=== PATIENT | male | born 1955 | race Caucasian/White ===

== ENCOUNTER 2017-09-04 22:25 | Inpatient (IN) | payer BC, OTHER ==
[~2017-09-04] VITALS: Ht 185.4 cm; Wt 98.9 kg
[2017-09-04 23:00] VITALS: BP 104/65
[2017-09-04] MEDS ORDERED: DILTIAZEM 125 MG/25 ML IV (CARDIZEM) IV ONE (23:07)
[2017-09-04] MEDS ORDERED: D5W 100 ML IVPB 100 ML IV ONE (23:07)
[2017-09-05] VITALS (16 sets, daily range): BP systolic 88–110; BP diastolic 58–77
[2017-09-05] MEDS ORDERED: ACETAMINOPHEN 325 MG TABLET/CAPLET (TYLENOL) PO PRN
[2017-09-05] MEDS: DILTIAZEM IV FOR DRIP 125 MG in D5W 100 ML IVPB 100 ML IV SCH ×2 (01:15→07:49)
[2017-09-05 03:45] LABS: BASOPHILS % (AUTO) 0 % (0-10); EOSINOPHILS # (AUTO) 0.1 10^3/uL (0.0-0.3); EOSINOPHILS % (AUTO) 1 % (0-10); HEMATOCRIT 39 % (40-54); HEMOGLOBIN 13.4 G/DL (13.3-17.7); LYMPHOCYTES # (AUTO) 1.1 X 10^3 (1.0-4.0); LYMPHOCYTES % (AUTO) 14 % (12-44); MEAN CORPUSCULAR HEMOGLOBIN 31 PG (25-34); MEAN CORPUSCULAR HGB CONC 34 G/DL (32-36); MEAN CORPUSCULAR VOLUME 91 FL (80-99); MEAN PLATELET VOLUME 11.2 FL (7.4-10.4); MONOCYTES # (AUTO) 0.9 X 10^3 (0.0-1.0); MONOCYTES % (AUTO) 11 % (0-12); NEUTROPHILS # (AUTO) 5.7 X 10^3 (1.8-7.8); NEUTROPHILS % (AUTO) 73 % (42-75); PLATELET COUNT 210 10^3/uL (130-400); RED BLOOD COUNT 4.27 10^6/uL (4.35-5.85); RED CELL DISTRIBUTION WIDTH 12.3 % (10.0-14.5); WHITE BLOOD COUNT 7.8 10^3/uL (4.3-11.0)
[2017-09-05 04:06] LABS: BUN/CREATININE RATIO 16; CALCIUM 8.6 MG/DL (8.5-10.1); CARBON DIOXIDE 21 MMOL/L (21-32); CHLORIDE 108 MMOL/L (98-107); CREATININE SERUM 1.18 MG/DL (0.60-1.30); GFR ESTIMATED > 60; GLUCOSE 126 MG/DL (70-105); MAGNESIUM 1.9 MG/DL (1.8-2.4); POTASSIUM 3.9 MMOL/L (3.6-5.0); SODIUM 140 MMOL/L (135-145)
[2017-09-05] MEDS ORDERED: POTASSIUM CL 10MEQ/50ML IVPB 50 ML IV SCH (06:00)
[2017-09-05] MEDS ORDERED: MAGNESIUM 1 GM/100 ML IVPB 100 ML IV SCH (06:00)
[2017-09-05] MEDS ORDERED: KCL 20 MEQ TAB (K-DUR) PO SCH (06:00)
[2017-09-05] MEDS ORDERED: INFLUENZA TRIvalent 2017-2018 0.5 ML/45 MCG SYR IM ONE (08:30)
[2017-09-05] MEDS ORDERED: AMIODARONE IV SOLUTION 200 ML IV ONE (09:30)
[2017-09-05] MEDS ORDERED: APIXABAN 5 MG (ELIQUIS) TABLET PO SCH (09:30)
[2017-09-05] MEDS: AMIODARONE IV SOLUTION 200 ML IV SCH ×2 (10:19→14:15)
--- NOTE | 2017-09-05 11:13 | Consultation-Cardiology ---
HPI-Cardiology Cardiology Consultation: Date of Consultation 09/05/17 Date of Admission Attending Physician Jarvis Akbar MD Admitting Physician Consulting Physician Estefanía ROLDAN MD HPI: Time Seen by Provider: 10:30 Chief Complaint: atrial fibrillation this is a 62-year-old gentleman who does not have any past medical or cardiac history. He is a patient of Dr. Morrow in [employer]. According to the patient he has been having flulike symptoms in the last one to 2 weeks. And has not been feeling well. He was found to have heart rate of 160 bpm at home on her home blood pressure monitor with low blood pressure and therefore presented to [facility]. According to the patient he did not have any shortness of breath, palpitation, syncope or near syncope. He was found to be in atrial flutter with rapid ventricular rate. Initial heart rate was 160 BPM. He was given Cardizem bolus with no significant response. He was transferred to our hospital for further management. He was given one dose of Eliquis in [facility] last night. We started him on IV Cardizem infusion overnight and amiodarone infusion in the morning. Review of Systems-Cardiology Review of Systems Constitutional: No As described under HPI, No no symptoms reported, No chills, No fever, No lightheadedness, No malaise, No tiredness, No weight loss, No weight gain, No other Eyes: No As described under HPI, No no symptoms reported, No blindness, No blurred vision, No contact lenses, No drainage, No decreased acuity, No foreign body sensation, No glasses, No inflammation, No pain, No photophobia, No previous injury, No shadows, No tunnel vision, No other, No vision change Ears/Nose/Throat: No As described under HPI, No no symptoms reported, No chronic hearing loss, No epistaxis, No ear discharge, No ear pain, No loose teeth, No mouth pain, No mouth swelling, No nasal drainage, No nose pain, No recent hearing loss, No throat pain, No throat swelling, No ulcerations, No other Respiratory: No no symptoms reported, No As described under HPI, No cough, No orthopnea, No shortness of breath, No SOB with excertion, No SOB at rest, No stridor, No wheezing, No other Cardiovascular: No no symptoms reported, No As described under HPI, No chest pain, No edema, No irregular heart rate, No lightheadedness, No palpitations, No syncope, No other Gastrointestinal: No no symptoms reported, No As described under HPI, No abdomen distended, No abdominal pain, No blood streaked bowels, No constipation , No diarrhea, No difficulty swallowing, No nausea, No poor appetite, No poor fluid intake, No rectal bleeding, No vomiting, No other, No nausea/vomiting/ diarrhea, No stool coloration changes Genitourinary: No no symptoms reported, No As described under HPI, No burning, No dysuria, No discharge, No frequency, No flank pain, No hematuria, No incontinence, No pain, No urgency, No other, No urine frequency changes, No urine coloration changes Musculoskeletal: No no symptoms reported, No As describe under HPI, No back pain, No gout, No joint pain, No joint swelling, No muscle pain, No muscle stiffness, No neck pain, No other Skin: No no symptoms reported, No As described under HPI, No change in color, No change in hair/nails, No dryness, No lesions, No lumps, No rash, No other, No skin related problems, No ulcerations, No rash on exposed areas, No ulcerations on exposed areas Psychiatric/Neurological: No no symptoms reported, No As described under HPI, No anxiety, No depression, No emotional problems, No headache, No numbness, No pre-existing deficit, No seizure, No tingling, No tremors, No weakness, No other , No focal weakness, No syncope Hematologic: No no symptoms reported, No As described under HPI, No anemia, No blood clots, No easy bleeding, No easy bruising, No swollen glands, No other, No bleeding abnormalities XCP-Wrjivj-Ejxkzv Hx Patient Social History Alcohol Use: Denies Use Recreational Drug Use: No Smoking Status: Never a Smoker Recent Foreign Travel: No Recent Infectious Disease Expo: No Physical Abuse Screen: No Sexual Abuse: No Past Medical History PMH As described under Assessment. Allergies and Home Medications Allergies Coded Allergies: No Known Drug Allergies (Unverified , 09/04/17) Physical Exam-Cardiology Physical Exam Vital Signs/I&O Vital Sign - Last 12Hours 09/04/17 09/05/17 09/05/17 09/05/17 23:48 00:00 01:00 01:00 Pulse 162 84 97 85 Resp 26 25 B/P (MAP) 97/68 (78) 104/68 (80) Pulse Ox 93 96 O2 Delivery Room Air Room Air 09/05/17 09/05/17 09/05/17 09/05/17 01:22 02:00 03:00 04:00 Pulse 86 85 Resp 28 18 B/P (MAP) 89/58 (68) 100/73 (82) Pulse Ox 97 93 93 95 O2 Delivery Room Air Room Air Room Air Room Air 09/05/17 09/05/17 09/05/17 09/05/17 04:00 04:00 05:00 06:00 Temp 98.9 Pulse 112 90 86 Resp 12 11 19 B/P (MAP) 102/65 (77) 103/70 (81) 88/60 (69) Pulse Ox 95 92 94 O2 Delivery Room Air Room Air Room Air 09/05/17 09/05/17 09/05/17 09/05/17 07:00 07:00 07:49 07:49 Temp 97.6 Pulse 95 96 114 Resp 26 B/P (MAP) 110/75 (87) 110/75 Pulse Ox 96 O2 Delivery Room Air Room Air 09/05/17 09/05/17 09/05/17 09/05/17 08:00 08:15 09:00 10:00 Pulse 126 86 78 Resp 29 28 15 B/P (MAP) 104/72 (83) 106/77 (87) 108/74 (85) Pulse Ox 96 97 96 99 O2 Delivery Room Air Room Air Room Air Room Air Capillary Refill : Constitutional: No appears stated age, No AAO x 3, No apparent distress, No PERRL, No well-developed, No well-nourished, No other HEENT: No PERRL, No normal ENT inspection, No TMs normal, No pharynx normal, No scleral icterus (R), No scleral icterus (L), No pale conjunctivae (R), No pale conjunctivae (L), No photophobia, No TM abnormal (R), No TM abnormal (L), No pharyngeal erythema, No tonsillar exudate, No other, No discharge, No EOMI, No hearing is well preserved, No hard of hearing, No oral hygience is good, No ulceration, No xanthelasmas are seen Neck: No non-tender, No full range of motion, No supple, No normal inspection, No carotid bruit, No limited range of motion, No lymphadenopathy (R), No lymphadenopathy (L), No tender lateral, No tender midline, No thyromegaly, No other, No carotid pulses are 2 + bilaterally, No with good upstrokes Respiratory: No accessory muscle use, No respiratory distress, No chest tender , No chest expansion is symmetric, No chest is bilaterally symmetric, No lungs clear to percussion, No lungs clear to auscultation, No crackles, No rhonchi, No rales, No stridor, No wheezing, No pleural rub, No other Cardiovascular: irregularly irregular, tachycardia, S1 and S2 Gastrointestinal: No tender, No soft, No round, No distended, No pulsatile mass , No organomegaly, No guarding, No rebound, No tenderness, No hernia, No mass, No audible bowel sounds, No abnormal bowel sounds, No abdominal bruits, No spleenomegaly, No other Rectal: deferred Extremities: No normal range of motion, No non-tender, No normal inspection, No pedal edema, No calf tenderness, No normal capillary refill, No pelvis stable , No calf tenderness, No inflammation, No pedal edema, No slow capillary refill , No swelling, No other, No abrasion, No clubbing, No cyanosis, No ecchymosis, No laceration, No no lower extremity edema bilateral, No significant edema, No tenderness, No wound Neurologic/Psychiatric: No medical referral coordinator II-XII nml as tested, No no motor/sensory deficits, No alert, No normal mood/affect, No oriented x 3, No abnormal cerebellar tests, No abnormal medical referral coordinator II-XII, No abnormal gait, No aphasia, No EOM palsy, No facial droop, No motor weakness, No sensory deficit, No depressed affect, No disoriented x 3, No other, No grossly intact, No power is 5/5 both on sides Skin: No normal color, No warm/dry, No cyanosis, No cool, No diaphoresis, No damp, No ecchymosis, No jaundice, No mottled, No pallor, No rash, No tattoos/ piercings, No ulcerations, No rash on exposed areas, No ulcerations on exposed areas, No other Data Review Labs Laboratory Tests 09/05/17 03:14: White Blood Count 7.8, Red Blood Count 4.27L, Hemoglobin 13.4, Hematocrit 39L, Mean Corpuscular Volume 91, Mean Corpuscular Hemoglobin 31, Mean Corpuscular Hemoglobin Concent 34, Red Cell Distribution Width 12.3, Platelet Count 210, Mean Platelet Volume 11.2H, Neutrophils (%) (Auto) 73, Lymphocytes (%) (Auto) 14 , Monocytes (%) (Auto) 11, Eosinophils (%) (Auto) 1, Basophils (%) (Auto) 0, Neutrophils # (Auto) 5.7, Lymphocytes # (Auto) 1.1, Monocytes # (Auto) 0.9, Eosinophils # (Auto) 0.1, Basophils # (Auto) 0.0, Sodium Level 140, Potassium Level 3.9, Chloride Level 108H, Carbon Dioxide Level 21, Anion Gap 11, Blood Urea Nitrogen 19H, Creatinine 1.18, Estimat Glomerular Filtration Rate > 60, BUN /Creatinine Ratio 16, Glucose Level 126H, Calcium Level 8.6, Phosphorus Level 2.6, Magnesium Level 1.9, Thyroid Stimulating Hormone (TSH) 2.37 ECG Impression ECG Comment atrial flutter with rapid ventricular rate A/P-Cardiology Assessment/Admission Diagnosis atrial flutter with rapid ventricular rate Plan I discussed at length the pathophysiology of atrial flutter, stroke prevention, rate versus rhythm control and further diagnostic and therapeutic modalities. The patient's CHADSVASC 0 therefore full aspirin is reasonable. However since we are going to pursue a rhythm control strategy therefore I have recommended Eliquis for at least a month. He is already on Cardizem infusion and amiodarone infusion. Transesophageal echocardiogram and direct external electrical cardioversion planned for today. If successful conversion he may be able to go home later today with follow-up in our electrophysiology office in the next one week. Transthoracic echocardiogram as well. Thank you for your consultation. Please call me if you have any questions. Estela Roldan MD, FACP, FACC, FSCAI, FHRS, CCDS Interventional Cardiology Cardiac Electrophysiology Vascular Medicine and Endovascular Interventions Clinical Quality Measures DVT/VTE Risk/Contraindication: Risk Factor Score Per Nursin RFS Level Per Nursing on Admit: 2=Moderate Estefanía ROLDAN MD Sep 05, 2017 11:13 am
[2017-09-05] MEDS ORDERED: NS IV 500 ML 500 ML IV SCH (11:30)
[2017-09-05] MEDS ORDERED: LIDOCAINE 2% VISCOUS 15 ML UDC PO ONE (11:30)
--- NOTE | 2017-09-05 11:55 | Short Stay Summary-Hospitalist ---
HPI History of Present Illness: HPI/Chief Complaint the patient is a 62-year-old white male who first noted 2 weeks ago coming down with body aches and pains and fever with dry cough. 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 He denied any problems with chest discomfort or palpitations heart racing sensation syncope or presyncope. 2 days prior to admission his noted that his heart rate was elevated at in the 150-160 beat per minute range. Patient was unaware. He saw their primary care physician Dr. Kwan I believe on and he was in the process of scheduling for further evaluation as he was also noted to have an elevated heart rate. Thursday his noted that his heart rate was still in the 150-160 beat per minute range on her home blood pressure monitor with reportedly normal blood pressures. At her insistence he presented to the emergency room where he was noted to be in atrial flutter with a rapid ventricular response in the 160 beat per minute range. He received IV Cartia some and metoprolol without any rate reduction and he was transferred to our facility for cardiovascular consultation further management of his atrial flutter with rapid ventricular response. He reports that prior to 2 weeks ago he been feeling well with no past history of known cardiac arrhythmias or cardiac disease. He's taking no medication. There is no history of thyroid or other autoimmune diseases that he is aware of. See below review of systems. Date Seen 09/05/17 Time Seen by Provider: 07:30 Attending Physician Michelle Akbar MD PCP Referring Physician Date of Admission Sep 04, 2017 at 23:00 Home Medications & Allergies Home Medications Reviewed patient Home Medication Reconciliation Form Allergies Allergies Coded Allergies No Known Drug Allergies (Unverified09/04/17) Past Uromajk-Fvqkfs-Uexlna Hx Patient Social History Alcohol Use: Denies Use Recreational Drug Use: No Smoking Status: Never a Smoker Physical Abuse Screen: No Sexual Abuse: No Recent Foreign Travel: No Contact w/other who traveled: No Recent Hopitalizations: No Recent Infectious Disease Expo: No Seasonal Allergies Seasonal Allergies: No Surgeries Yes (SPINAL FISION, TONSILS A KID) Respiratory No Cardiovascular No Neurological No Genitourinary No Gastrointestinal No Musculoskeletal No Endocrine History of Endocrine Disorders: No HEENT History of HEENT Disorders: No Cancer No Psychosocial History of Psychiatric Problem: No Integumentary History of Skin or Integumenta: No Blood Transfusions History of Blood Disorders: No Adverse Reaction to a Blood Tr: No Review of Systems Constitutional: see HPI, No chills, No diaphoresis, No dizziness, fever (2 weeks ago for several days but then resolved), No malaise, weakness, No weight gain, No weight loss, No other EENTM: nose congestion (cough for about a week but currently minimal no sputum production reported.) Respiratory: cough (cough for about a week but currently minimal no sputum production reported.), No dyspnea on exertion, No hemoptysis, No orthopnea, No phlegm, No short of breath, No stridor, No wheezing, No other Cardiovascular: no symptoms reported, see HPI, No chest pain, No edema, No Hx of Intervention, No palpitations, No syncope, No vascular heart diseas, No other Physical Exam Physical Exam Vital Signs Vital Sign - Last 12Hours 09/04/17 23:00 Temp 98.5 Pulse 161 Resp 25 B/P (MAP) 104/65 (78) Pulse Ox 97 O2 Delivery Room Air Capillary Refill : General Appearance: No Apparent Distress, WD/WN Neck: Full Range of Motion, Normal Inspection, Non Tender, Supple, Carotid Bruit Respiratory: Chest Non Tender, Lungs Clear, Normal Breath Sounds, No Accessory Muscle Use, No Respiratory Distress Cardiovascular: No Edema, No Gallop, No JVD, No Murmur, Normal Peripheral Pulses, Irregularly Irregular, Tachycardia Gastrointestinal: Normal Bowel Sounds, No Organomegaly, No Pulsatile Mass, Non Tender, Soft Extremity: Normal Capillary Refill, Normal Inspection, Normal Range of Motion, Non Tender, No Calf Tenderness, No Pedal Edema Neurologic/Psychiatric: Alert, Oriented x3, No Motor/Sensory Deficits, Normal Mood/Affect Results Results/Procedures Lab Laboratory Tests 09/05/17 03:14 Short Stay Diagnosis Discharge Diagnosis-Short Stay Admission Diagnosis 1. Atrial flutter with rapid ventricular response. Final Discharge Diagnosis same as above Conclusion Plan Mr. Chang was admitted to the intensive care unit for IV Cartia some was continued and amiodarone IV was initiated. He remained in atrial flutter with a more controlled ventricular response in the 90-110 be per minute range down from the 160 range. He remained asymptomatic voicing no complaints. Blood studies including TSH were unremarkable. Verbal report per Dr. Roldan echocardiogram revealed no structural heart disease with preserved systolic function. He'll be undergoing likely DEBBI with cardioversion to follow this afternoon with plans on discharging after. Full dose aspirin in one month of L Mahan will be initiated. Refer to discharge summary for other rate control medications per Dr. Roldan. Copy Copies To 1: MICHELINE KWAN MD Clinical Quality Measures DVT/VTE Risk/Contraindication: Risk Factor Score Per Nursin RFS Level Per Nursing on Admit: 2=Moderate MICHELLE AKBAR MD Sep 05, 2017 11:55
[2017-09-05] MEDS ORDERED: MIDAZOLAM 2 MG/2 ML (VERSED) VIAL ONE (11:59)
[2017-09-05] MEDS ORDERED: proPOfol 200 MG/20 ML (DIPRIVAN) VIAL IV ONE ×2 (12:00→12:15)
--- NOTE | 2017-09-05 12:33 | Cardioversion ---
Cardioversion PROCEDURE PHYSICIAN: Estela Roldan MD DATE OF PROCEDURE: 09/05/17 DIRECT EXTERNAL ELECTRICAL CARDIOVERSION: Indications: Atrial flutter with rapid ventricular rate Preoperative diagnoses: Atrial flutter with rapid ventricular rate Postoperative diagnosis: Sinus rhythm, Successful Electrical Cardioversion History: this is a 62-year-old gentleman who does not have any significant past medical or cardiac history. He presents with atrial flutter with rapid ventricular rate. He was treated with Cardizem infusion overnight and IV amiodarone infusion since morning however he remains in atrial flutter. Cardioversion after transesophageal echocardiogram is recommended. Anesthesia: By Anesthesia services Complications: None Specimen: None Contrast: 0 Flouroscopy: none Procedure Details: Cardioversion was performed in the ICU after informed consent was taken, all the risks and complications were explained including the risk of stroke. Electrical cardioversion was carried out with anesthesia support with propofol. 120 joules of synchronized shock was delivered through external patches which promptly restored sinus rhythm. The patient tolerated the procedure well. transesophageal echocardiogram did not show any left atrium or left atrial appendage thrombus. Conclusions: 1.Successful Cardioversion. 2.Continue oral anticoagulation and rate controlling agent. 3.Follow up in office next week. Estela Roldan MD, RS, CCDS Cardiac Electrophysiology Estefanía ROLDAN MD Sep 05, 2017 12:33 pm
[2017-09-05] MEDS ORDERED: APIX5TAB PO (12:35)
[2017-09-05] MEDS ORDERED: DILT180C67 PO (12:35)
--- NOTE | 2017-09-05 12:35 | Anesthesia-Procedure Note ---
Procedure Start/Stop Time Date of Procedure: Sep 05, 2017 Start Time: 12:00 Referring Physician: Jamar Stop Time: 12:25 Procedures/Interventions Procedures Called to ICU for DEBBI/Cardioversion sedation. Spoke with patient. Brief history obtained. Procedure completed. 2mg versed and 250 mg propofol given for sedation throughout procedure. VSS. Patient tolerated procedure well. Spontaneous respirations maintained. Care to GYRO COMPASS TESTER. JOSEPH ARNETT CRNA Sep 05, 2017 12:35
--- NOTE | 2017-09-05 12:36 | Discharge Inst-Cardiology ---
Discharge Inst-Cardiac Patient Instructions Patient Instructions: patient will be discharged on Cardizem CD 180 mg daily. He will also continue on Eliquis 5 mg twice a day. Follow-up with Dr. Roldan next week. Goal: sinus rhythm. [facility] if symptomatic atrial flutter. Activity & Diet Discharge Diet: No Restrictions Drink 6-8 Glasses/Fluids/Day: Yes Activity as Tolerated: Yes Estefanía ROLDAN MD Sep 05, 2017 12:36 pm
[2017-09-05] MEDS ORDERED: MIDAZOLAM 2 MG/2 ML (VERSED) VIAL IVP NR (12:37)
[2017-09-05] MEDS ORDERED: proPOfol 200 MG/20 ML (DIPRIVAN) VIAL IV NR (12:38)
[2017-09-05] MEDS ORDERED: DILTIAZEM 180 MG (CARDIZEM CD) CAP PO NR (12:48)
== END 2017-09-05 16:30 | disposition home or self-care (01) | DRG 310 ==
LOC: ICU 23:00
PROVIDERS: ADMIT Internal Medicine; ATTEND Internal Medicine
PROC: 5A2204Z Restoration of Cardiac Rhythm, Single (ICD-10-PCS; principal; 2017-09-05)
DX: I48.92 Unspecified atrial flutter (principal)
CPT/HCPCS: 36415; 80048; 83735; 84100; 84443; 85025; 93306; 93320; 93325

== ENCOUNTER 2017-12-06 10:45 | Outpatient (RCR) | payer BC ==
[~2017-12-06 10:45] MED LIST: APIX5TAB PO; DILT180C67 PO
== END 2018-02-10 | disposition home or self-care (01) ==
LOC: CARD 10:45
PROVIDERS: ATTEND Internal Medicine Interventional Cardiology
DX: I48.92 Unspecified atrial flutter (principal); I10 Essential (primary) hypertension
CPT/HCPCS: 93270

== ENCOUNTER 2019-06-13 06:54 | Day surgery (SDC) | payer BC ==
[~2019-06-13] VITALS: Ht 185 cm; Wt 215.0 kg
[2019-06-13] VITALS (22 sets, daily range): BP systolic 96–144; BP diastolic 48–94
[2019-06-13] MEDS ORDERED: NS IV 1000 ML 1,000 ML IV SCH (06:56)
[2019-06-13] MEDS ORDERED: ISOPROTERENOL 0.2 MG/D5W 50 ML IV ONE (07:00)
[2019-06-13] MEDS ORDERED: NS IV 1000 ML 1,000 ML ONE (07:01)
[2019-06-13] MEDS ORDERED: HEParin (CATH LAB) 2,000 ML IV ONE (07:01)
[2019-06-13] MEDS ORDERED: LIDOCAINE 1% INJ 20 ML 20 ML VIAL ONE (07:01)
[2019-06-13] MEDS ORDERED: PROPOFOL DRIP (ICU) 100 ML IV ONE (07:02)
[2019-06-13] MEDS ORDERED: fentaNYL INJECTION 100 MCG/2 ML AMP ONE (07:02)
[2019-06-13] MEDS ORDERED: MIDAZOLAM 2 MG/2 ML (VERSED) VIAL ONE (07:02)
[2019-06-13] MEDS ORDERED: KETAMINE HCL 100 MG/ML 5 ML VIAL ONE (07:03)
[2019-06-13 07:20] LABS: HEMOGLOBIN 16.1 G/DL (13.3-17.7); MEAN PLATELET VOLUME 10.4 FL (7.4-10.4); RED CELL DISTRIBUTION WIDTH 12.7 % (10.0-14.5); WHITE BLOOD COUNT 6.6 10^3/uL (4.3-11.0)
[2019-06-13 07:30] LABS: INR 1.2 (0.8-1.4); PROTHROMBIN TIME PATIENT 15.3 SEC (12.2-14.7)
[2019-06-13 07:35] LABS: ALANINE AMINOTRANSFERASE 26 U/L (0-55); ALBUMIN 4.3 GM/DL (3.2-4.5); ALKALINE PHOSPHATASE 60 U/L (40-136); BILIRUBIN,TOTAL 0.9 MG/DL (0.1-1.0); BUN/CREATININE RATIO 17; CALCIUM 9.5 MG/DL (8.5-10.1); CARBON DIOXIDE 22 MMOL/L (21-32); CHLORIDE 107 MMOL/L (98-107); CREATININE SERUM 1.19 MG/DL (0.60-1.30); GFR ESTIMATED > 60; GLUCOSE 127 MG/DL (70-105); POTASSIUM 4.3 MMOL/L (3.6-5.0); SODIUM 140 MMOL/L (135-145); TOTAL PROTEIN 7.1 GM/DL (6.4-8.2)
[2019-06-13] MEDS ORDERED: DEXAMETHASONE 10 MG/ML (DECADRON) 1 ML VIAL ONE (07:56)
[2019-06-13] MEDS ORDERED: ONDANSETRON 4 MG/2 ML (SDV) Z0FRAN ONE (07:56)
[2019-06-13] MEDS ORDERED: SEVOFLURANE (ULTANE) 15 ML INHAL SOLN ONE ×2 (07:57→10:00)
[2019-06-13] MEDS ORDERED: HYDROmorphone 2 MG/ML VIAL (DILAUDID) ONE ×2 (08:42→14:51)
--- NOTE | 2019-06-13 09:37 | History & Physicial-Cardiolgy ---
HPI-Cardiology Cardiology Consultation: Date of Consultation 06/13/19 Date of Admission Attending Physician Estefanía Roldan MD Admitting Physician Effie,Local Physician Consulting Physician Estefanía ROLDAN MD HPI: Time Seen by a Provider: 08:00 Chief Complaint: Typical atrial flutter This is a 63-year-old gentleman who was found to be in typical atrial flutter with rapid ventricular rate. Transesophageal echocardiogram assisted cardioversion on 09/05/2017. Long-term surveillance for atrial fibrillation is recommended. EP study with typical atrial flutter ablation and implantable loop recorder is recommended. Review of Systems-Cardiology Review of Systems Constitutional: As described under HPI; No As described under HPI, No no symptoms reported, No chills, No fever, No lightheadedness Eyes: No As described under HPI, No no symptoms reported, No blindness, No blurred vision, No contact lenses, No drainage, No decreased acuity, No foreign body sensation, No pain, No vision change Ears/Nose/Throat: No As described under HPI, No no symptoms reported, No chronic hearing loss, No ear discharge, No ear pain, No nasal drainage, No u lcerations Respiratory: No no symptoms reported; As described under HPI; No As described under HPI, No cough, No orthopnea, No shortness of breath, No SOB with excertion Cardiovascular: No no symptoms reported; As described under HPI; No As described under HPI, No chest pain, No edema, No irregular heart rate, No lightheadedness, No palpitations Gastrointestinal: No no symptoms reported, No As described under HPI, No abdomen distended, No abdominal pain, No blood streaked bowels, No constipation, No diarrhea, No nausea, No vomiting, No stool coloration changes Genitourinary: No As described under HPI, No burning, No dysuria, No discharge, No frequency, No flank pain, No hematuria, No urgency Skin: No rash, No skin related problems, No ulcerations Psychiatric/Neurological: No anxiety, No depression, No seizure, No focal weakness, No syncope Hematologic: No bleeding abnormalities BRB-Tjuszx-Qiqpat Hx Patient Social History Alcohol Use: Denies Use Recreational Drug Use: No Smoking Status: Never a Smoker Recent Foreign Travel: No Recent Infectious Disease Expo: No Past Medical History PMH As described under Assessment. Allergies and Home Medications Allergies Coded Allergies: No Known Drug Allergies (Unverified , 09/04/17) Home Medications Apixaban 5 Mg Tablet, 5 MG PO BID Prescribed by: Estefanía ROLDAN on 09/05/17 1235 Diltiazem HCl 180 Mg Cap.er.24h, 180 MG PO DAILY Prescribed by: Estefanía ROLDAN on 09/05/17 1235 Patient Home Medication List Home Medication List Reviewed: Yes Physical Exam-Cardiology Physical Exam Vital Signs/I&O 06/13/19 07:07 Temp 37.2 Pulse 74 Resp 16 B/P (MAP) 144/94 (111) Pulse Ox 94 O2 Delivery Room Air Capillary Refill : Constitutional: appears stated age; No apparent distress; well-developed, well- nourished HEENT: PERRL; No discharge; hearing is well preserved, oral hygience is good; No ulceration, No xanthelasmas are seen Neck: No carotid bruit; carotid pulses are 2 + bilaterally Respiratory: chest is bilaterally symmetric, lungs clear to auscultation Cardiovascular: regular rate-rhythm, S1 and S2 Gastrointestinal: soft, audible bowel sounds; No spleenomegaly Rectal: deferred Extremities: normal range of motion, non-tender, normal inspection; No clubbing, No cyanosis; no lower extremity edema bilateral; No significant edema Neurologic/Psychiatric: no motor/sensory deficits, alert, normal mood/affect, oriented x 3, power is 5/5 both on sides Skin: normal color, warm/dry; No rash, No ulcerations Data Review Labs Laboratory Tests 06/13/19 07:12: White Blood Count 6.6, Red Blood Count 5.12, Hemoglobin 16.1, Hematocrit 46, Mean Corpuscular Volume 90, Mean Corpuscular Hemoglobin 31, Mean Corpuscular Hemoglobin Concent 35, Red Cell Distribution Width 12.7, Platelet Count 224, Mean Platelet Volume 10.4, Prothrombin Time 15.3H, INR Comment 1.2, Activated Partial Thromboplast Time 35, Sodium Level 140, Potassium Level 4.3, Chloride Level 107, Carbon Dioxide Level 22, Anion Gap 11, Blood Urea Nitrogen 20H, Creatinine 1.19, Estimat Glomerular Filtration Rate > 60, BUN/Creatinine Ratio 17, Glucose Level 127H, Calcium Level 9.5, Corrected Calcium 9.3, Total Bilirubin 0.9, Aspartate Amino Transf (AST/SGOT) 21, Alanine Aminotransferase (ALT/SGPT) 26, Alkaline Phosphatase 60, Total Protein 7.1, Albumin 4.3 ECG Impression ECG Initial ECG Rhythm: Normal Sinus A/P-Cardiology Assessment/Admission Diagnosis Typical atrial flutter Admission Status: Observation Plan Typical atrial flutter ablation, Implantable loop recorder for long-term surveillance of atrial fibrillation. Estefanía ROLDAN MD Jun 13, 2019 9:37 am POS
--- NOTE | 2019-06-13 09:39 | Electrophysiology Procedure ---
EP Procedure DATE OF SERVICE:06/13/19 CARDIAC TECHNOLOGY EDUCATION TEACHER: Estela Roldan MD, [facility], [facility]. INDICATION: Typical atrial flutter PREOPERATIVE DIAGNOSIS: Typical atrial flutter POSTOPERATIVE DIAGNOSES: Successful typical atrial flutter ablation. HISTORY: This is a 63-year-old gentleman with typical atrial flutter, status post previous transesophageal echocardiogram assisted cardioversion. Long-term surveillance of atrial fibrillation is also recommended. The patient is planned for comprehensive EP study and ablation. PROCEDURE PERFORMED: 1. Comprehensive EP study with induction. 2. Fluoroscopy. 3.Left atrial pacing and recording 4. Drug infusion. 5. Ablation of typical atrial flutter. 6. Comprehensive 3D mapping with the carto system. COMPLICATION: None. ESTIMATED BLOOD LOSS: 10 mL. CONTRAST USED: None. FLUOROSCOPY TIME: 3 minutes 28 seconds. FLUOROSCOPY DOSE: 93 mgy. SPECIMENS: None. ANESTHESIA: Done by our anesthesia colleagues. ANTICOAGULATION: Uninterrupted Eliquis. PROCEDURE IN DETAIL: After informed consent was taken, the patient was brought to the EP lab. Anesthesia was provided by our anesthesia colleagues. The patient was draped and prepped in the usual sterile fashion. The patient presented to the EP lab in sinus rhythm. Access was gained in the right femoral vein with a 6-Malian and an 8.5-Malian sheath. Left access in left femoral vein was gained with 6-Malian and 6-Malian sheath respectively. High right atrial catheter was an ablation catheter, right ventricular catheter was placed, his catheter and the CS catheter were also placed. A comprehensive EP study was done including left atrial pacing and recording. Dual AV vashti physiology was not demonstrated. Left atrial pacing and recording did not demonstrate a left lateral bypass tract. RV pacing demonstrated concentric atrial activation. Typical atrial flutter was not induced with rapid atrial pacing with and without Isuprel infusion. A 3D electroanatomic mapping was donewith the carto system. Ablation was performed in the cavotricuspid isthmus.CS pacing and pacing from the ablation catheter at different positions on the lateral side of the ablation line were used to verify bidirectional block. We then waited for 30 minutes and rechecked and confirmed bidirectional block.Isuprel was given post-procedure, however, we could not induce atrial flutter.The patienttolerated the procedure well and did not have any complication. The patientleft the lab in sinus rhythm. Total ablation time was 10 minutes and 35 seconds. MEASUREMENTS/EP STUDY: A interval 773 ms, AH interval 76 seconds, HV interval 49 ms, NM interval 187 ms, QRS duration 62 ms, QT interval 342 ms, R-R interval 1088 ms, Left atrial Wenckebach when pacing at cycle length 310 ms, Right atrial Wenckebach when pacing at cycle length 340 ms, Retrograde Wenckebach when pacing at cycle length 360 ms, Atrial ERP 600/270 ms, Retrograde ERP 600/290 ms, On Isuprel infusion; AV Wenckebach when pacing at cycle length 360 ms, Retrograde Wenckebach when pacing at 350 ms, Atrial ERP 450/210 ms. PLAN: The patient will be observed overnight and will be discharged home tomorrow with precise followup instructions. Estela Roldan MD, RS, CCDS Cardiac Electrophysiology Estefanía ROLDAN MD Jun 13, 2019 9:39 am POS
[2019-06-13] MEDS ORDERED: PATIENT MAY USE OWN MEDS, ALL PO SCH (09:45)
--- NOTE | 2019-06-13 10:01 | Implantation of Loop Monitor ---
Implant of Loop Monitior PROCEDURE PHYSICIAN: Estela Roldan MD IMPLANTATION OF LOOP MONITOR REPORT DATE OF PROCEDURE: 06/13/19 PERFORMING PHYSICIAN: Dr. Elías Roldan. INDICATION: Long-term surveillance of atrial fibrillation PREOP DIAGNOSIS: Long-term surveillance of atrial fibrillation POSTOP DIAGNOSIS: Long-term surveillance of Atrial fibrillation, s/p implantation of loop recorder. PROCEDURE DETAILS: The patient is a 63 male with history of typical atrial flutter and possible paroxysmal atrial fibrillation requiring long-term surveillance. Therefore implantable loop recorder was discussed and agreed with the patient. Informed consent was taken. All risks and complications were discussed at length. The patient was draped and prepped in the usual sterile fashion. Local anesthesia was lidocaine, which was given in the substernal area close to the 4th intercostal space. Loop monitor was implanted according to the protocol. Steri- Strips were placed at the end of the procedure. There were no complications and the patient tolerated the procedure well. ANESTHESIA: Local anesthesia with lidocaine. COMPLICATIONS: None CONTRAST/FLUOROSCOPY: None CONCLUSION: 1. Successful implantation of loop monitor for long-term surveillance of atrial fibrillation. 2. No complication and the patient tolerated the procedure well. Estela Roldan MD, RS, CCDS Cardiac Electrophysiology Estefanía ROLDAN MD Jun 13, 2019 10:01 am POS
[2019-06-13] MEDS ORDERED: ONDANSETRON 4 MG/2 ML (SDV) Z0FRAN IVP PRN (10:30)
[2019-06-13] MEDS ORDERED: HYDROmorphone 2 MG/ML VIAL (DILAUDID) IV ONE (10:30)
[2019-06-13] MEDS: ACETAMINOPHEN 325 MG TABLET PO PRN (12:50)
[2019-06-13] MEDS: NS IV 1000 ML 1,000 ML IV SCH ×2 (12:55→20:12)
[2019-06-13] MEDS: APIXABAN 5 MG (ELIQUIS) TABLET PO SCH (20:09)
[2019-06-14] VITALS: BP 121/77
[2019-06-14 04:00] VITALS: BP 134/73
[2019-06-14] MEDS: ACETAMINOPHEN 325 MG TABLET PO PRN (04:51)
[2019-06-14] MEDS: NS IV 1000 ML 1,000 ML IV SCH (04:52)
[2019-06-14 05:15] LABS: HEMOGLOBIN 14.4 G/DL (13.3-17.7); MEAN PLATELET VOLUME 10.8 FL (7.4-10.4); RED CELL DISTRIBUTION WIDTH 12.7 % (10.0-14.5); WHITE BLOOD COUNT 11.5 10^3/uL (4.3-11.0)
[2019-06-14 05:34] LABS: BUN/CREATININE RATIO 19; CALCIUM 8.7 MG/DL (8.5-10.1); CARBON DIOXIDE 19 MMOL/L (21-32); CHLORIDE 108 MMOL/L (98-107); CREATININE SERUM 1.21 MG/DL (0.60-1.30); GFR ESTIMATED > 60; GLUCOSE 156 MG/DL (70-105); POTASSIUM 4.5 MMOL/L (3.6-5.0); SODIUM 137 MMOL/L (135-145)
[2019-06-14] MEDS: APIXABAN 5 MG (ELIQUIS) TABLET PO SCH (08:32)
[2019-06-14 08:33] VITALS: BP 137/79
[2019-06-14] MEDS ORDERED: DILTIAZEM 180 MG (CARDIZEM CD) CAP PO SCH (09:00)
[2019-06-14] MEDS ORDERED: DILTIAZEM 120 MG (CARDIZEM CD) CAP PO SCH (09:00)
--- NOTE | 2019-06-14 13:12 | Anesthesia-General Post-Op ---
General Patient Condition Mental Status/LOC: Same as Preop Cardiovascular: Satisfactory Nausea/Vomiting: Absent Respiratory: Satisfactory Pain: Controlled Complications: Absent Post Op Complications Complications None Follow Up Care/Instructions Patient Instructions None needed. Anesthesia/Patient Condition Patient Condition Patient is doing well, no complaints, stable vital signs, no apparent adverse anesthesia problems. No complications reported per nursing. FRANKLIN CONCEPCION CRNA Jun 14, 2019 13:12 POS
--- NOTE | 2019-06-14 21:39 | Cardiology Discharge Summary ---
Diagnosis/Chief Complaint Date of Admission 06/13/2019 Date of Discharge 06/14/2019 Admission Diagnosis Typical atrial flutter, paroxysmal atrial fibrillation Final/Discharge Diagnosis Successful typical atrial flutter ablation, Implantable loop recorder implantation Chief Complaint/HPI Chief Complaint/HPI This is a 63-year-old gentleman who was found to be in typical atrial flutter with rapid ventricular rate. Transesophageal echocardiogram assisted cardioversion on 09/05/2017. Long-term surveillance for atrial fibrillation is recommended. EP study with typical atrial flutter ablation and implantable loop recorder is recommended. Discharge Summary Procedures Typical atrial flutter ablation done successfully. Implantable loop recorder done. Discharge Physical Examination Normal cardiac vascular examination Hospital Course Was the Problem List Reviewed?: Yes Unremarkable. Discussion & Recommendations Discussion Discharge instructions discussed at length with the patient. Continue oral anticoagulation therapy. Follow up appt.: Dr Roldan in 3-4 weeks Dicharge Diet: Cardiac Diet Activity as Tolerated: Yes Home Medications Reviewed patient Home Medication Reconciliation performed by pharmacy medication reconciliations service center technician and/or nursing. Patients Allergies have been reviewed. Discharge Home Medications: Reviewed and agree with Discharge Medication list on patient's Discharge Instru ction sheet Condition at discharge stable Instructions to patient/family Discussed at length with the patient and family Estefanía ROLDAN MD Jun 14, 2019 21:39 POS
== END 2019-06-14 11:05 | disposition home or self-care (01) ==
LOC: CATH 06:54 → ICU 11:26 → 4TH 18:28 → CATH 06-14 11:05
PROVIDERS: ATTEND Internal Medicine Interventional Cardiology
DX: I48.3 Typical atrial flutter (principal); I48.0 Paroxysmal atrial fibrillation; I10 Essential (primary) hypertension; Z79.01 Long term (current) use of anticoagulants; Z79.899 Other long term (current) drug therapy
CPT/HCPCS: 33285; 36415; 80048; 80053; 85027; 85610; 85730; 87081; 93005; 93621; 93623; 93653

== ENCOUNTER → 2019-07-28 | Outpatient (CLI) | payer BC ==
[~2019-07-28] VITALS: Ht 185 cm; Wt 100.0 kg
[~2019-07-28] MED LIST changes: +CATHETER FLUSH 10 ML SYR IV PRN; +REGADENOSON 0.4 MG/5 ML SYR (LEXISCAN) IV ONE
[2019-07-28 09:08] VITALS: BP 163/94
== END ==
LOC: CARD 07:53
PROVIDERS: ATTEND Internal Medicine Interventional Cardiology
DX: I10 Essential (primary) hypertension (principal); I48.0 Paroxysmal atrial fibrillation; I48.3 Typical atrial flutter
CPT/HCPCS: 78452; 93017

== ENCOUNTER → 2019-08-01 | Outpatient (CLI) | payer BC ==
[~2019-08-01] MED LIST changes: -CATHETER FLUSH 10 ML SYR IV PRN; -REGADENOSON 0.4 MG/5 ML SYR (LEXISCAN) IV ONE
== END ==
LOC: CARD 10:38
PROVIDERS: ATTEND Internal Medicine Interventional Cardiology
DX: I48.0 Paroxysmal atrial fibrillation (principal); I48.3 Typical atrial flutter; I10 Essential (primary) hypertension
CPT/HCPCS: 93306

== ENCOUNTER 2019-10-24 07:01 | Day surgery (SDC) | payer BC ==
[2019-10-24] VITALS (21 sets, daily range): BP systolic 109–143; BP diastolic 71–90
[~2019-10-24] VITALS: Ht 185.5 cm; Wt 95.5 kg
[~2019-10-24 07:01] MED LIST changes: +LIDOCAINE BOLUS 100 MG/5 ML (IMS) SYR ONE; +MIDAZOLAM 2 MG/2 ML (VERSED) VIAL ONE; +fentaNYL INJECTION 100 MCG/2 ML AMP ONE; +proPOfol 200 MG/20 ML (DIPRIVAN) VIAL IV ONE
[2019-10-24] MEDS ORDERED: LIDOCAINE 1% INJ 20 ML 20 ML VIAL ONE (07:05)
[2019-10-24] MEDS ORDERED: NS IV 1000 ML 1,000 ML ONE ×2 (07:05→09:39)
[2019-10-24] MEDS ORDERED: HEPARIN IV ONE (07:05)
[2019-10-24] MEDS ORDERED: NS IV 1000 ML 1,000 ML IV SCH ×2 (07:07)
[2019-10-24] MEDS ORDERED: ISOPROTERENOL 0.2 MG/D5W 50 ML IV ONE (07:15)
[2019-10-24 07:35] LABS: HEMOGLOBIN 15.9 G/DL (13.3-17.7); MEAN PLATELET VOLUME 10.4 FL (7.4-10.4); RED CELL DISTRIBUTION WIDTH 12.9 % (10.0-14.5); WHITE BLOOD COUNT 5.8 10^3/uL (4.3-11.0)
[2019-10-24] MEDS ORDERED: FLEC50TA PO (07:39)
[2019-10-24 07:47] LABS: INR 1.1 (0.8-1.4)
[2019-10-24 07:55] LABS: ALANINE AMINOTRANSFERASE 18 U/L (0-55); ALBUMIN 4.4 GM/DL (3.2-4.5); ALKALINE PHOSPHATASE 65 U/L (40-136); BILIRUBIN,TOTAL 0.8 MG/DL (0.1-1.0); BUN/CREATININE RATIO 15; CALCIUM 9.4 MG/DL (8.5-10.1); CARBON DIOXIDE 24 MMOL/L (21-32); CHLORIDE 107 MMOL/L (98-107); CREATININE SERUM 1.21 MG/DL (0.60-1.30); GFR ESTIMATED > 60; GLUCOSE 126 MG/DL (70-105); POTASSIUM 4.3 MMOL/L (3.6-5.0); SODIUM 139 MMOL/L (135-145)
[2019-10-24] MEDS ORDERED: HEParin 1000 UNIT/ML (10ML VIAL) FOR BOLUS ONE ×2 (08:08→10:26)
[2019-10-24] MEDS ORDERED: HEParin DRIP 25000 UNIT/500ML 500 ML IV ONE (08:09)
[2019-10-24] MEDS ORDERED: PHENYLEPHRINE 100 MCG/ML 10 ML (ANESTHESIA) SYR ONE (10:33)
[2019-10-24] MEDS ORDERED: SEVOFLURANE (ULTANE) 15 ML INHAL SOLN ONE ×2 (10:52→12:35)
[2019-10-24] MEDS ORDERED: ROCURONIUM 10 MG/ML 5 ML SYRINGE IV ONE (11:19)
[2019-10-24] MEDS ORDERED: DEXAMETHASONE 10 MG/ML (DECADRON) 1 ML VIAL ONE (12:21)
[2019-10-24] MEDS ORDERED: PROTAMINE 50 MG/5 ML VIAL ONE (12:21)
[2019-10-24] MEDS ORDERED: ONDANSETRON 4 MG/2 ML (SDV) Z0FRAN ONE (12:34)
[2019-10-24] MEDS ORDERED: NEOSTIGMINE 3 MG/3 ML VIAL ONE (12:34)
[2019-10-24] MEDS ORDERED: GLYCOPYRROLATE 0.2 MG/ML (ROBINUL) 2 ML VIAL ONE (12:34)
--- NOTE | 2019-10-24 12:40 | Electrophysiology Procedure ---
EP Procedure DATE OF SERVICE:10/24/19 Paroxysmal atrial fibrillation ablation. CARDIAC FIRE PREVENTION INSPECTOR: Estela Roldan MD, [facility]. INDICATION: Paroxysmal atrial fibrillation refractory to antiarrhythmic therapy. PREOPERATIVE DIAGNOSIS: Paroxysmal atrial fibrillation refractory to antiarrhythmic therapy. POSTOPERATIVE DIAGNOSES: Successful pulmonary vein isolation HISTORY: This is a 64-year-old gentleman with history of paroxysmal atrial fibrillation refractory to antiarrhythmic therapy. Previous history of typical atrial flutter ablation. Patient also has an implantable loop recorder which shows daily atrial fibrillation. Longest episode for 6-8 hours. Patient was previously on multaq. Recently started on flecainide 50 mg twice a day. The patient is planned for comprehensive EP study and ablation. PROCEDURE PERFORMED: 1. Comprehensive EP study with induction. 2. Fluoroscopy. 3. Left atrial pacing and recording. 4. Drug infusion. 5. Atrial fibrillation ablation with pulmonary vein isolation 6. Comprehensive 3D mapping with the carto system. 7. Left ventricular pacing and recording. 8. Intracardiac echocardiogram COMPLICATION: None. ESTIMATED BLOOD LOSS: 10 mL. CONTRAST USED: None. FLUOROSCOPY DOSE: 92 mgy. SPECIMENS: None. ANESTHESIA: Done by our anesthesia colleagues. ANTICOAGULATION: Uninterrupted Eliquis therapy. PROCEDURE IN DETAIL: After informed consent was taken, the patient was brought to the EP lab. Anesthesia was provided by our anesthesia colleagues. The patient was draped and prepped in the usual sterile fashion. The patient presented to the EP lab in sinus rhythm.3D mapping was done with Carto system. Left atrial pacing and recording was also done. Access was gained in the right femoral vein with one 8-Ethiopian and one 7 Ethiopian sheath. Left access in left femoral vein was gained with one 12 Ethiopian sheath and another 6 Ethiopian sheath. His catheter was placed through the left 6 Ethiopian sheath and a CS catheter was placed through the right 7 Ethiopian sheath. Intracardiac echocardiogram was performed with an ICE catheter which was advanced through the 12 Ethiopian sheath. Numerous images were taken of the RV, RA, left atrium and LV. There was no pericardial effusion. All 4 pulmonary veins were identified. A carto-sound map was created with the ice catheter. We then advanced a guidewire into the superior vena cava. A long sheath was advanced with the transseptal needle. Under fluoroscopic and echocardiogram guidance, transseptal puncture was done once through the fossa ovalis. Left atrial pressure was documented. IV heparin bolus was given followed by heparin infusion. ACT target over 350 seconds. Patient was on uninterrupted oral anticoagulation therapy. The transseptal needle was taken out and a PENTARAY mapping catheter was utilized to perform voltage mapping of the left atrium. Once 3-D mapping was completed, the Pentaray catheter was taken out and we advanced an irrigated ablation catheter. We then proceeded with pulmonary vein isolation. Pulmonary vein isolation was performed for the left pulmonary veins. Exit block was confirmed. We then proceeded to the right pulmonary vein. Exit block was again confirmed with high output pacing in each vein and demonstrating dissociation of the left atrium. Isuprel was started at high dose. No tachycardia was induced. Rapid atrial pacing on Isuprel did not induce atrial fibrillation. Comprehensive EP study was done. Left ventricular pacing and recording did not demonstrate a left lateral pathway. After 30 minutes, we rechecked all the 4 pulmonary veins and demonstrated exit block despite high output pacing. Final intracardiac echocardiogram images demonstrated no pericardial effusion. All the sheaths were taken out. 20 mg of IV protamine and 10 mg of Decadron IV was given. Figure of 8 sutures were done in both venous access and manual compression done for 5 minutes. Hemostasis was achieved. Patient tolerated the procedure well and did not have any complications. The patient left the EP lab in sinus rhythm. Total ablation time 1247 seconds. MEASUREMENTS/EP STUDY: AA interval 775 ms, AH interval 49 ms, HV interval 41 ms, TX interval 146 ms, QRS duration 77 ms, QT interval 232 ms, R-R interval 779 ms, Retrograde Wenckebach at pacing cycle length 430 ms, AV Wenckebach when pacing at 340 ms, Atrial ERP was 550/230 ms. PLAN: The patient will be observed overnight and will be discharged home tomorrow with precise followup instructions. Estela Roldan MD, [facility] Cardiac Electrophysiology Estefanía ROLDAN MD Oct 24, 2019 12:40
--- NOTE | 2019-10-24 12:40 | History & Physicial-Cardiolgy ---
HPI-Cardiology Cardiology Consultation: Date of Consultation 10/24/19 Date of Admission Attending Physician Estefanía Roldan MD Admitting Physician Effie,Local Physician Consulting Physician Estefanía ROLDAN MD HPI: Time Seen by a Provider: 08:00 Chief Complaint: Paroxysmal atrial fibrillation This is a 64-year-old gentleman who has history of paroxysmal atrial fibrillation refractory to antiarrhythmic therapy. He had previous typical atrial flutter ablation which was done on 06/13/2019. He has an implantable loop recorder which shows frequent episodes of atrial fibrillation. Almost daily atrial fibrillation with longest episode for 6-8 hours. Multaq 400 mg twice a day previously. Currently on flecainide 50 mg twice a day. Review of Systems-Cardiology Review of Systems Constitutional: As described under HPI; No As described under HPI, No no symptoms reported, No chills, No fever, No lightheadedness Eyes: No As described under HPI, No no symptoms reported, No blindness, No blurred vision, No contact lenses, No drainage, No decreased acuity, No foreign body sensation, No pain, No vision change Ears/Nose/Throat: No As described under HPI, No no symptoms reported, No chronic hearing loss, No ear discharge, No ear pain, No nasal drainage, No ulcerations Respiratory: No no symptoms reported; As described under HPI; No As described under HPI, No cough, No orthopnea, No shortness of breath, No SOB with excertion Cardiovascular: No no symptoms reported; As described under HPI; No As described under HPI, No chest pain, No edema, No irregular heart rate, No lightheadedness, No palpitations Gastrointestinal: No no symptoms reported, No As described under HPI, No abdomen distended, No abdominal pain, No blood streaked bowels, No constipation, No diarrhea, No nausea, No vomiting, No stool coloration changes Genitourinary: No As described under HPI, No burning, No dysuria, No discharge, No frequency, No flank pain, No hematuria, No urgency Skin: No rash, No skin related problems, No ulcerations Psychiatric/Neurological: No anxiety, No depression, No seizure, No focal weakness, No syncope Hematologic: No bleeding abnormalities [id number] Hx Patient Social History Alcohol Use: Denies Use Recreational Drug Use: No Smoking Status: Never a Smoker Recent Foreign Travel: No Past Medical History PMH As described under Assessment. Allergies and Home Medications Allergies Coded Allergies: No Known Drug Allergies (Unverified , 09/04/17) Home Medications Apixaban 5 Mg Tablet, 5 MG PO BID Prescribed by: Estefanía ROLDAN on 09/05/17 1235 Diltiazem HCl 180 Mg Cap.er.24h, 180 MG PO DAILY Prescribed by: Estefanía ROLDAN on 09/05/17 1235 Flecainide Acetate 50 Mg Tablet, 50 MG PO Q12H, (Reported) Patient Home Medication List Home Medication List Reviewed: Yes Physical Exam-Cardiology Physical Exam Vital Signs/I&O 10/24/19 10/24/19 10/24/19 10/24/19 07:23 13:16 13:16 13:20 Temp 36.3 36.7 Pulse 72 Resp 20 20 18 B/P (MAP) 143/90 (107) 134/89 (104) 136/87 (103) Pulse Ox 98 100 99 O2 Delivery OxyMask OxyMask OxyMask O2 Flow Rate 6 6 6 10/24/19 10/24/19 10/24/19 10/24/19 13:30 13:30 13:40 13:43 Resp 18 18 B/P (MAP) 137/89 (105) 137/87 (104) Pulse Ox 100 99 O2 Delivery OxyMask OxyMask OxyMask OxyMask O2 Flow Rate 6 6 6 6 10/24/19 10/24/19 10/24/19 10/24/19 13:50 13:50 14:00 14:00 Resp 18 18 B/P (MAP) 137/86 (103) 134/85 (101) Pulse Ox 98 96 O2 Delivery OxyMask OxyMask Room Air Room Air O2 Flow Rate 3 3 10/24/19 10/24/19 10/24/19 10/24/19 14:10 14:10 14:15 14:30 Temp 36.4 Pulse 88 88 Resp 18 13 15 B/P (MAP) 132/84 (100) 137/85 (102) 137/86 (103) Pulse Ox 95 98 97 O2 Delivery Room Air Room Air Room Air Room Air 10/24/19 10/24/19 10/24/19 14:45 15:00 15:07 Pulse 87 94 88 Resp 11 10 B/P (MAP) 134/79 (97) 129/85 (100) Pulse Ox 97 98 O2 Delivery Room Air Room Air Capillary Refill : Constitutional: appears stated age; No apparent distress; well-developed, well- nourished HEENT: PERRL; No discharge; hearing is well preserved, oral hygience is good; No ulceration, No xanthelasmas are seen Neck: No carotid bruit; carotid pulses are 2 + bilaterally Respiratory: chest is bilaterally symmetric, lungs clear to auscultation Cardiovascular: regular rate-rhythm, S1 and S2 Gastrointestinal: soft; No spleenomegaly Rectal: deferred Extremities: normal range of motion, non-tender, normal inspection; No clubbing, No cyanosis, No significant edema Neurologic/Psychiatric: no motor/sensory deficits, alert, normal mood/affect, oriented x 3, power is 5/5 both on sides Skin: normal color; No rash, No ulcerations Data Review Labs Laboratory Tests 10/24/19 07:26: White Blood Count 5.8, Red Blood Count 5.21, Hemoglobin 15.9, Hematocrit 47, Mean Corpuscular Volume 90, Mean Corpuscular Hemoglobin 31, Mean Corpuscular Hemoglobin Concent 34, Red Cell Distribution Width 12.9, Platelet Count 237, Mean Platelet Volume 10.4, Prothrombin Time 15.0H, INR Comment 1.1, Activated Partial Thromboplast Time 36H, Sodium Level 139, Potassium Level 4.3, Chloride Level 107, Carbon Dioxide Level 24, Anion Gap 8, Blood Urea Nitrogen 18, Creatinine 1.21, Estimat Glomerular Filtration Rate > 60, BUN/Creatinine Ratio 15, Glucose Level 126H, Calcium Level 9.4, Corrected Calcium 9.1, Total Bilirubin 0.8, Aspartate Amino Transf (AST/SGOT) 19, Alanine Aminotransferase (ALT/SGPT) 18, Alkaline Phosphatase 65, Total Protein 7.0, Albumin 4.4 ECG Impression ECG Initial ECG Rhythm: Normal Sinus A/P-Cardiology Assessment/Admission Diagnosis Paroxysmal atrial fibrillation refractory to antiarrhythmic therapy. Admission Status: Observation Plan Pulmonary vein isolation is recommended. Estefanía ROLDAN MD Oct 24, 2019 12:40
[2019-10-24] MEDS ORDERED: PATIENT MAY USE OWN MEDS, ALL PO SCH (12:45)
[2019-10-24] MEDS ORDERED: morphine INJ 10 MG/ML 1ML (SYR OR VIAL) ONE (13:42)
[2019-10-24] MEDS: NS IV 1000 ML 1,000 ML IV SCH ×2 (14:07→20:58)
[2019-10-24] MEDS: APIXABAN 5 MG (ELIQUIS) TABLET PO SCH (20:56)
[2019-10-24] MEDS: FLECAINIDE 100 MG (TAMBOCOR) TAB PO SCH (20:56)
[2019-10-25] VITALS (11 sets, daily range): BP systolic 100–124; BP diastolic 54–75
[2019-10-25 04:18] LABS: HEMOGLOBIN 13.7 G/DL (13.3-17.7); MEAN PLATELET VOLUME 10.7 FL (7.4-10.4); WHITE BLOOD COUNT 10.6 10^3/uL (4.3-11.0)
[2019-10-25 04:48] LABS: BUN/CREATININE RATIO 15; CALCIUM 8.3 MG/DL (8.5-10.1); CARBON DIOXIDE 20 MMOL/L (21-32); CHLORIDE 106 MMOL/L (98-107); CREATININE SERUM 1.18 MG/DL (0.60-1.30); GFR ESTIMATED > 60; GLUCOSE 176 MG/DL (70-105); POTASSIUM 4.5 MMOL/L (3.6-5.0); SODIUM 136 MMOL/L (135-145)
--- NOTE | 2019-10-25 06:39 | Anesthesia-General Post-Op ---
General Patient Condition Mental Status/LOC: Same as Preop Cardiovascular: Satisfactory Nausea/Vomiting: Absent Respiratory: Satisfactory Pain: Controlled Complications: Absent Post Op Complications Complications None Follow Up Care/Instructions Patient Instructions None needed. Anesthesia/Patient Condition Patient Condition Patient is doing well, no complaints, stable vital signs, no apparent adverse anesthesia problems. No complications reported per nursing. JOSEPH ARNETT CRNA Oct 25, 2019 06:39
[2019-10-25] MEDS: FLECAINIDE 100 MG (TAMBOCOR) TAB PO SCH (08:28)
[2019-10-25] MEDS: APIXABAN 5 MG (ELIQUIS) TABLET PO SCH (08:28)
[2019-10-25] MEDS ORDERED: dilTIAZem120 MG (CARDIZEM CD) CAP PO SCH (09:00)
--- NOTE | 2019-10-25 13:24 | Cardiology Discharge Summary ---
Diagnosis/Chief Complaint Date of Admission Date of Discharge Chief Complaint/HPI Chief Complaint/HPI This is a 64-year-old gentleman who has history of paroxysmal atrial fibrillation refractory to antiarrhythmic therapy. He had previous typical atrial flutter ablation which was done on 06/13/2019. He has an implantable loop recorder which shows frequent episodes of atrial fibrillation. Almost daily atrial fibrillation with longest episode for 6-8 hours. Multaq 400 mg twice a day previously. Currently on flecainide 50 mg twice a day. Discharge Summary Procedures None. Discussion & Recommendations Home Medications Reviewed patient Home Medication Reconciliation performed by pharmacy medication reconciliations on call pharmacy technician and/or nursing. Patients Allergies have been reviewed. Discharge Home Medications: Reviewed and agree with Discharge Medication list on patient's Discharge Instruction sheet Estefanía HANLEY MD Oct 25, 2019 13:24
== END 2019-10-25 14:10 | disposition home or self-care (01) ==
LOC: CATH 07:01 → ICU 14:15 → CATH 10-25 14:10
PROVIDERS: ATTEND Internal Medicine Interventional Cardiology
DX: I48.0 Paroxysmal atrial fibrillation (principal); I48.3 Typical atrial flutter; I10 Essential (primary) hypertension; Z79.01 Long term (current) use of anticoagulants; Z79.899 Other long term (current) drug therapy
CPT/HCPCS: 36415; 80048; 80053; 85027; 85347; 85610; 85730; 87081; 93005; 93613; 93620; 93623; 93656; 93662